=== PATIENT | male | born 1965 | race Caucasian/White ===

== ENCOUNTER → 2021-02-07 13:25 | Outpatient (BNVA) | payer BC, SELFPAY | PROVIDERS: PCP Internal Medicine; Visit Provider Hospitalist ==

== ENCOUNTER 2021-04-18 13:52 | Outpatient (REF) | payer BC, SELFPAY ==
--- NOTE | 2021-04-18 16:27 | PFT_ITS ---
INDICATION: Dyspnea. SPIROMETRY: The FEV1 to FVC of 44% with an FEV1 of 2.76 L, which is 68% predicted, an FVC of 6.33 L which is 120% predicted. No significant response to bronchodilators noted. Maximum voluntary ventilation 75% predicted. LUNG VOLUMES: Total lung capacity 112% predicted with residual volume 92% predicted. DIFFUSION CAPACITY: DLCO 34% predicted. COMPARISONS: None. INTERPRETATION: There is an obstructive ventilatory defect consistent with moderate COPD. No significant response to bronchodilators noted. Significant small airways disease noted. There is also mild decrease in the maximum voluntary ventilation secondary to likely deconditioning. Lung volumes with a trend of hyperinflation in addition to that the patient does have a severe diffusion impairment secondary to likely emphysematous changes and/or the parenchymal lung conditions and other pulmonary vascular conditions should also be considered. Clinical correlation warranted. MD STACIA Mead/MODGagandeep / [id number]
== END 2021-04-18 13:53 | disposition home or self-care (01) ==
LOC: HO.RESP 13:52
PROVIDERS: PCP Internal Medicine; Visit Provider Hospitalist
DX: R06.00 Dyspnea, unspecified (principal); J44.9 Chronic obstructive pulmonary disease, unspecified
CPT/HCPCS: 94060; 94727; 94729

== ENCOUNTER → 2021-04-25 08:58 | Outpatient (BNVA) | payer BC, SELFPAY | PROVIDERS: PCP Internal Medicine; Visit Provider Hospitalist ==

== ENCOUNTER → 2021-06-06 15:01 | Outpatient (BNVA) | payer BC, SELFPAY | PROVIDERS: PCP Internal Medicine; Visit Provider Hospitalist | DX: R91.1 Solitary pulmonary nodule (principal); J44.1 Chronic obstructive pulmonary disease with (acute) exacerbation; R06.00 Dyspnea, unspecified; U07.1 COVID-19; Z87.891 Personal history of nicotine dependence | CPT/HCPCS: 99212 ==

== ENCOUNTER → 2021-08-16 09:06 | Outpatient (BNVA) | payer BC, SELFPAY | PROVIDERS: PCP Internal Medicine; Visit Provider Hospitalist | DX: J44.9 Chronic obstructive pulmonary disease, unspecified (principal) ==

== ENCOUNTER → 2022-08-21 13:48 | Outpatient (BNVA) | payer BC, SELFPAY | PROVIDERS: PCP Internal Medicine; Visit Provider Hospitalist | DX: J44.9 Chronic obstructive pulmonary disease, unspecified (principal) ==

== ENCOUNTER 2023-01-22 14:18 | Outpatient (AMB) | payer BC, SELFPAY ==
[2023-01-22 14:27] VITALS: BP 122/76; PULSE 85; RESP 12; O2SAT 93
--- NOTE | 2023-01-22 14:27 | A.OFFVIS_ITS ---
Intake Vital Signs 01/22/23 14:27 Height 6 ft BP 122/76 Blood Pressure Location Lt brachial Position Sitting Respiration 12 Pulse 85 Pulse Source Pulse Oximeter Pulse Oximetry (%) 93 Oxygen Delivery Method Room Air Intake Visit Reasons: COPD Allergies oxycodone Allergy (Severe, Verified 01/22/23 14:29) Itching/Hives Medication List - Last Reconciled 01/22/23 by Shana Cortes LPN allopurinol 300 mg PO DAILY atorvastatin 10 mg PO DAILY budesonide 0.5 mg (2 mL) inhalation BID ipratropium-albuterol 0.5 mg-3 mg(2.5 mg base)/3 mL 3 mL inhalation BID ipratropium-albuterol 20-100 mcg/actuation 1 puff inhalation Q6H 30 days loratadine (Claritin) 10 mg PO DAILY metformin 500 mg PO DAILY multivitamin 1 tab PO DAILY nebulizers As directed varenicline 1 mg PO BID HPI HPI Comments History of Present Illness Details The patient is a 57-year-old gentleman with a significant past medical history of smoking. He quit 4 months ago. He continues to have dyspnea on exertion. Moderate severity. Does get better with rest. He is very busy at work. 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 His job is very active. He does not feel limited from a respiratory standpoint. He did undergo a CT scan of the chest which we personally reviewed. It appears that he has extensive emphysema primarily in the upper lung zones but does manifest also in the bases. He does have a small subcentimeter pulmonary nodule. This will need follow-up in a year's time. During the visit we did go for brief walking oximetry in he did desaturate briefly down to 88%. The patient is Molina score was down to 2/10. This was not significant shortness of breath for him. at this point will try to provide bronchodilation and will perform pulmonary function studies to assess his lung capacity. We did talk about pulmonary rehabilitation and he can do on his own time specially if he wants doing online. At this point he quit smoking altogether. But he is concerned because is going through a some anger episodes. This is since he stop smoking. He was placed on an SSRI. He may need to have a higher dose. 04/25/2021 the patient is here for a pulmo nary follow-up visit. He has now recovered from COVID-19. Feels like his breathing is worse. He is also having increasing productive cough with white thick sputum. He has been noticing increasing shortness of breath. Initially he was on Anoro but it was too expensive. I did give him a coupon for Trelegy inhaler with hopes that he could be more reasonable. But, his insurance did not cover it and could not use the coupon. Subsequently he came in for this appointment. We did review his pulmonary function studies demonstrating moderate COPD with severe diffusion imp airment. I do believe that this is also affected by his recent COVID infection. Patient does have some increased wheezing and also crepitations at the bases. Therefore will treating for a COPD exacerbation and lower respiratory infections at this time. We did briefly go for walking oximetry. His oxygen decrease down briefly again to about 88-89%. The patient is reluctant to use oxygen at this time. He continues to work full-time. Sometimes he works doubles and is always on his feet. I encouraged the patient to listen to his body and avoid extraneous activity specially he starts desaturating is only going to resulting worsening his logic stressed the body including the heart in the brain. 06/06/2021 the patient is here for a pulmonary follow-up visit. He still complaining that his breathing is now worse specially after recovering from COVID-19. Unfortunately the patient had extensive emphysema even prior to the COVID. Now with COVID his respiratory status has worsened significantly. He did respond initially to the prednisone taper but then once he has completed his symptoms again reoccurred. He also tried multiple inhalers with that are actually very expensive for him and yet he did not see any significant improvement with respiratory status. 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 Point that he does qualify for oxygen. However, the patient is reluctant to do so based on the fact that he is young and he wants to continue working and he cannot work on oxygen. Will try him again on prednisone. Also provided with a nebulizer to see if we can get him more effective delivery of the medication. the patient is frustrated with his current health situation. I do emphasized with him and his wanting to be able to continue with his work ethic. 08/16/2021 the patient is here for a pulmonary follow-up visit. Since we last spoke the patient has been feeling about the same. Although, he is taking it easier to minimize his symptoms. He continues using nebulizer twice a day with partial response. Continues to have significant shortness of breath moderate severity. Denies any wheezing or any productive phlegm. He continues to have a a pulse ox in the low 90s. The patient has been reluctant to use oxygen. We will optimize his respiratory therapy by adding budesonide to his DuoNeb. In the meantime will also start the patient on Combivent in order for him to be able to continue the medicine even when he is outside of the home. If the Combivent is helpful he can consider taking that on vacation when [facility]. Otherwise any to take his nebulizer. His respiratory exam is better I do believe that he is making improvement. Were also follow-up pulmonary nodules. His next CT scan is going to be in December 2021. Will follow-up with him after that CT scan of the chest. 02/20/2022 the patient is here for a pulmonary follow-up visit. The patient has been doing relatively well. He had quit smoking for about a year. Unfortunately after going on vacation he once again restarted smoking. He is motivated to quitting. He does have the patch although he has not restarted using it. I did recommend starting Chantix. The patient understands that he has to monitor very closely for any depression or irritability. I am hopeful that he can start with a starter pack and then if he tolerates that then he can continue taking the maintenance dose. At any point he becomes uncomfortable taking his stop it and call me. We did review his CT scan of the chest that had back in December 2021. It is reassuring that his pulmonary nodules stable. We talked that may before his next CAT scan next year he can be part of the lung cancer screening program and therefore have low-dose CT scans. He continues uses nebulized therapy. He is very excited that his oxygenation is better today at 96% from before in the low 90s. The patient is encouraged that he could potentially get better. Therefore he is going to start the Chantix a monitor closely for any adverse effects. I am hopeful that he can tolerated. He will follow-up in 6 months. 08/21/2022 the patient is here for a pulmo dericky follow-up visit. The patient overall is doing well. Unfortunately he has gone back to smoking. Sometimes he smokes 5 cigarettes and sometimes he can not smoke up to a pack. Depends on his anxiety level. He is still working. And still using the Chantix with partial response. We did talk about adding a nicotine supplementation to see this is effective along with his Chantix. In addition to this we talked about hypnosis which will consider. The patient also be a great candidate for the lung cancer screening program. His next CT will be for the fall of 2022. Patient is using his respiratory therapy. Otherwise patient is without any other complaints. 01/22/2023 the patient is here for pulmonary follow-up visit. The patient continues to go back to smoking. Smoking about a pack a day. he would like to quit smoking before he leaves to a room by which is in 2 months. The patient did well with Chantix although he continued to smoke some. Therefore this time he can consider using Chantix along with the nicotine supplement a chin which could be the Nicotrol inhaler or the nicotine patch. He had a bad reaction to high-dose nicotine patch in the past. Therefore be reasonable for him to use lower patch along with the Chantix. If he has any adverse effects he can always stop it. The patient continues on the nebulized therapy with good effect. [facility] Medical History (Updated 01/21/23 @ 11:07 by Fiath Hannah PA-C) COPD (chronic obstructive pulmonary disease) Dyspnea Pulmonary nodule Personal history of nicotine dependence History of COVID-19 Hyperlipidemia Gout Social History (Updated 02/07/21 @ 13:35 by Glenna Gongora Cesar) Patient Tobacco Use Status: Former Tobacco user Tobacco use type: Cigarette Years Smoked: 40 years Quit 10/2020 Review of Systems Const Denies night sweats ENT Denies change in voice, Denies lip swelling, Denies mouth pain, Reports nasal congestion, Reports nasal discharge and Denies tongue swelling Card Denies chest pain and Reports dyspnea on exertion Resp Denies chest congestion, Reports cough, Reports dyspnea on exertion and Reports wheezing GI Denies abdominal pain Musc Denies no additional complaints Neuro Denies Neuro-related abnormal movements Psych Denies no additional complaints Dragan/Lymph Denies easy bleeding and Denies lymphadenopathy Aller/Immun Denies lip swelling, Denies tongue swelling and Reports wheezing Physical Exam Vital Signs: Last Vital Signs Pulse 85 01/22/23 14:27 Resp 12 01/22/23 14:27 BP 122/76 01/22/23 14:27 Pulse Ox 93 01/22/23 14:27 Oxygen Delivery Method Room Air 01/22/23 14:27 Const General: alert Neck Neck: Yes normal visual inspection, Yes full ROM and Yes no lymphadenopathy Chest Chest palpation & inspection: normal inspection of the chest Resp Auscultation: no rhonchi, wheezes and diminished lung sounds Cardio Rate: regular rate Rhythm: regular rhythm Heart sounds: S1 normal heart sound present and S2 normal heart sound present GI Palpation (GI): Soft to palpation and nontender Auscultation: normal bowel sounds Skin General skin exam: rashes and/or lesions noted Assessment & Plan Assessment & Plan (1) Pulmonary nodule: Comment: Stable 4 mm pulmonary nodule based on last CT scan December 2021 Code(s): R91.1 - Solitary pulmonary nodule (2) COPD (chronic obstructive pulmonary disease): Code(s): J44.9 - Chronic obstructive pulmonary disease, unspecified Qualifiers: COPD type: COPD with acute exacerbation Qualified Code(s): J44.1 - 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 with (acute) exacerbation (3) Dyspnea: Code(s): R06.00 - Dyspnea, unspecified Qualifiers: Dyspnea type: dyspnea on exertion Qualified Code(s): R06.00 - Dyspnea, unspecified (4) Tobacco dependence due to cigarettes: Code(s): F17.210 - Nicotine dependence, cigarettes, uncomplicated Plan Continue nebulized therapy with DuoNeb twice a day budesonide via nebulizer start CPT with acapella valve Combivent LDCT continue Chantix, monitoring for depression start nicotene patch along with the chantix consider hypnosis F/U 6 months Medications: New nicotine 1 patch transdermal DAILY 28 days 28 ea 3RF Refilled varenicline 1 mg PO BID 159 tabs 1RF Coding Level of Care Code Est Pt Level 4 (65630) Diagnoses Pulmonary nodule R91.1 Chronic obstructive pulmonary disease with acute exacerbation J44.1 COPD type: COPD with acute exacerbation Dyspnea on exertion R06.00 Dyspnea type: dyspnea on exertion Tobacco dependence due to cigarettes F17.210 Time Spent (min) 16
== END 2023-01-22 14:54 | disposition home or self-care (01) ==
PROVIDERS: PCP Internal Medicine; Visit Provider Hospitalist
DX: R91.1 Solitary pulmonary nodule (principal); J44.1 Chronic obstructive pulmonary disease with (acute) exacerbation; R06.00 Dyspnea, unspecified; F17.210 Nicotine dependence, cigarettes, uncomplicated
CPT/HCPCS: 99214

== ENCOUNTER → 2023-01-22 14:18 | Outpatient (BNVA) | payer BC, SELFPAY | PROVIDERS: PCP Internal Medicine; Visit Provider Hospitalist | DX: J44.9 Chronic obstructive pulmonary disease, unspecified (principal); F17.210 Nicotine dependence, cigarettes, uncomplicated ==

== ENCOUNTER 2023-01-25 09:55 | Outpatient (AMB) | payer BC, SELFPAY ==
--- NOTE | 2023-01-25 09:56 | MHC.OFFVIS ---
Intake Intake Visit Reasons: LDCT SD Allergies oxycodone Allergy (Severe, Verified 01/22/23 14:29) Itching/Hives HPI LDCT SD HPI Details Initial visit for this 57 year old smoker with a 28 PYH. Patient has been smoking since age 19 for 38 years at 1/2-1ppd. . Notes social second hand smoke exposure. Denies exposure to chemicals or substances like asbestos. . Denies known family history of lung cancer. Denies personal history of cancer. Denies chest CT in last year, LAST 12/2021, report below. . Has traveled outside the to [place], [facility] and [facility]. Denies recent respiratory illness or recent hospitalization for respiratory issues. Reports testing positive for COVID. Admits to being up to date with COVID Vaccinations. . Denies fever, chills, new/worsening cough, hemoptysis, hoarseness or dysphagia. Denies significant chest pain, significant dyspnea or unintentional weight loss. Patient Lung Cancer Screening Questionnaire reviewed with patient by provider. . Shared Decision Making Completed. Patient meets criteria. Discussed in detail with patient, the risk vs benefit of LDCT screening. Patient consents to proceed with scan. Discussed smoking cessation. [facility] Medical History (Updated 01/21/23 @ 11:07 by Faith Hannah PA-C) COPD (chronic obstructive pulmonary disease) Dyspnea Pulmonary nodule Personal history of nicotine dependence History of COVID-19 Hyperlipidemia Gout Social History (Updated 02/07/21 @ 13:35 by DEMETRIS Kevin) Patient Tobacco Use Status: Former Tobacco user Tobacco use type: Cigarette Years Smoked: 40 years Quit 10/2020 Results Reviewed Results Reviewed: Assessment & Plan Assessment & Plan (1) Personal history of nicotine dependence: Comment: (former smoker quit 10/2020) Prior chest CTs done. 12/28/2020 was lung-RADS 2, 12/19/21 noted stable 4mm RUL nodule. Code(s): Z87.891 - Personal history of nicotine dependence Plan - SDM visit completed via telehealth. - Patient meets criteria for LDCT for lung cancer screening purposes and is asymptomatic. - Offered smoking cessation. - Will arrange for a LDCT scan of the chest for screening purposes at [facility]. - Discussed follow up plan. Will send a letter discussing results and if needed set up phone call and office visit based on CT findings. - Risks, benefits, and alternatives were discussed in detail and patient agrees to proceed. - Risks discussed include but are not limited to: radiation exposure and possibility of additional intervention for benign disease. - Benefits are obviously detection of lung cancer at an early stage. - Discussed importance of screening program and compliance with yearly LDCT scan as scheduled. - Patient informed they will be contacted at later date to schedule upcoming LDCT scan. - All questions answered. - A copy of office note and LDCT will be sent to patient's PCP. Incidental findings on LDCT are PCP's responsibility. Telehealth Telehealth Location of provider rendering services: practice address Location of patient: address on file Patient Identification confirmed using: Name, : Yes Telehealth method: voice only Patient verbally consented to treatment: Yes Patient verbally consented to billing insurance company: Yes Patient informed of any privacy concerns related to visit: Yes Coding Level of Care Code Lung Cancer Screening [id number] Diagnoses Personal history of nicotine dependence Z87.891
== END 2023-01-25 10:49 | disposition home or self-care (01) ==
LOC: HO.HPS 09:55
PROVIDERS: PCP Internal Medicine; Visit Provider Nurse Practitioner Family
DX: Z87.891 Personal history of nicotine dependence (principal)
CPT/HCPCS: G0296

== ENCOUNTER 2023-01-25 13:57 | Outpatient (REF) | payer BC, SELFPAY ==
--- NOTE | ~2023-01-25 | CT_ITS ---
EXAMINATION: CT LOW-DOSE SCREENING CHEST WITHOUT CONTRAST CLINICAL INFORMATION: CT scan from screening. Smoking 1 pack per day/43 pack per year/correlate to one year ago COMPARISON: 12/19/2021, 12/28/2020 TECHNIQUE: Multidetector volumetric noncontrast CT imaging of the chest was obtained using low-dose screening CT technique. Axial thin section 0.625 mm reformations in soft tissue and lung windows were obtained. Sagittal and coronal reformations were obtained. Axial MIP images were also created and reviewed. RECONSTRUCTED WIDTH: 1.25 mm x[address] examination was performed using dose optimization techniques as appropriate, variously including the following: *Automated exposure control *Adjustment of mA and/or kV according to patient size (this includes techniques or standardized protocols for targeted exams where dose is matched to indication/reason for exam; i.e. extremities or head) *Use of iterative reconstruction technique TOTAL EXAM DLP: 51 mGy-cm. CTDIvol: 1.14 mGy. FINDINGS: PULMONARY NODULES: No lung nodules identified. 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 Central airways are patent. MEDIASTINUM: No mediastinal adenopathy by size criteria. No obvious hilar adenopathy on this noncontrast study. CORONARY ARTERY CALCIFICATION: Coronary artery calcifications present THYROID GLAND: Unremarkable to the extent seen. CARDIOVASCULAR STRUCTURES: Aorta and heart size normal. No pericardial effusion. CHEST WALL/AXILLA: Unremarkable. No evidence of axillary adenopathy by size criteria. UPPER ABDOMEN: Included portions of the solid organs in the upper abdomen appear unremarkable on noncontrast imaging. OSSEOUS STRUCTURES: No suspicious finding. CT/CT lung screening IMPRESSION: No lung nodules identified severe changes of COPD with emphysematous changes and bullous disease. ASSESSMENT: 1. Lung-RADS Category 2 2. Lung-RADS Category S: Benign RECOMMENDATION: Continued routine annual screening based on patient's risk factors with low dose CT scan
== END 2023-01-25 13:58 | disposition home or self-care (01) ==
LOC: HO.CT 13:57
PROVIDERS: Visit Provider Physician Assistant Medical
DX: Z12.2 Encounter for screening for malignant neoplasm of respiratory organs (principal); Z87.891 Personal history of nicotine dependence
CPT/HCPCS: 71271; G0296

== ENCOUNTER 2023-06-25 14:23 | Outpatient (AMB) | payer BC, SELFPAY ==
--- NOTE | 2023-06-25 14:26 | A.OFFVIS_ITS ---
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 He quit 4 months ago. He continues to have dyspnea on exertion. Moderate severity. Does get better with rest. He is very busy at work. 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 His job is very active. He does not feel limited from a respiratory standpoint. He did undergo a CT scan of the chest which we personally reviewed. It appears that he has extensive emphysema primarily in the upper lung zones but does manifest also in the bases. He does have a small subcentimeter pulmonary nodule. This will need follow-up in a year's time. During the visit we did go for brief walking oximetry in he did desaturate briefly down to 88%. The patient is Molina score was down to 2/10. This was not significant shortness of breath for him. at this point will try to provide bronchodilation and will perform pulmonary function studies to assess his lung capacity. We did talk about pulmonary rehabilitation and he can do on his own time specially if he wants doing online. At this point he quit smoking altogether. But he is concerned because is going through a some anger episodes. This is since he stop smoking. He was placed on an SSRI. He may need to have a higher dose. 04/25/2021 the patient is here for a pulmo james follow-up visit. He has now recovered from COVID-19. Feels like his breathing is worse. He is also having increasing productive cough with white thick sputum. He has been noticing increasing shortness of breath. Initially he was on Anoro but it was too expensive. I did give him a coupon for Trelegy inhaler with hopes that he could be more reasonable. But, his insurance did not cover it and could not use the coupon. Subsequently he came in for this appointment. We did review his pulmonary function studies demonstrating moderate COPD with severe diffusion impairment. I do believe that this is also affected by his recent COVID infection. Patient does have some increased wheezing and also crepitations at the bases. Therefore will treating for a COPD exacerbation and lower respiratory infections at this time. We did briefly go for walking oximetry. His oxygen decrease down briefly again to about 88-89%. The patient is reluctant to use oxygen at this time. He continues to work full-time. Sometimes he works doubles and is always on his feet. I encouraged the patient to listen to his body and avoid extraneous activity specially he starts de saturating is only going to resulting worsening his logic stressed the body including the heart in the brain. 06/06/2021 the patient is here for a pulmonary follow-up visit. He still complaining that his breathing is now worse specially after recovering from COVID-19. Unfortunately the patient had extensive emphysema even prior to the COVID. Now with COVID his respiratory status has worsened significantly. He did respond initially to the prednisone taper but then once he has completed his symptoms again reoccurred. He also tried multiple inhalers with that are actually very expensive for him and yet he did not see any significant improvement with respiratory status. 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 Point that he does qualify for oxygen. However, the patient is reluctant to do so based on the fact that he is young and he wants to continue working and he cannot work on oxygen. Will try him again on prednisone. Also provided with a nebulizer to see if we can get him more effective delivery of the medication. the patient is frustrated with his current health situation. I do emphasized with him and his wanting to be able to continue with his work ethic. 08/16/2021 the patient is here for a pulmonary follow-up visit. Since we last spoke the patient has been feeling about the same. Although, he is taking it easier to minimize his symptoms. He continues using nebulizer twice a day with partial response. Continues to have significant shortness of breath moderate severity. Denies any wheezing or any productive phlegm. He continues to have a a pulse ox in the low 90s. The patient has been reluctant to use oxygen. We will optimize his respiratory therapy by adding budesonide to his DuoNeb. In the meantime will also start the patient on Combivent in order for him to be able to continue the medicine even when he is outside of the home. If the Combivent is helpful he can consider taking that on vacation when he [facility]. Otherwise any to take his nebulizer. His respiratory exam is better I do believe that he is making improvement. Were also follow-up pulmonary nodules. His next CT scan is going to be in December 2021. Will follow-up with him after that CT scan of the chest. 02/20/2022 the patient is here for a pulmonary follow-up visit. The patient has been doing relatively well. He had quit smoking for about a year. Unfortunately after going on vacation he once again restarted smoking. He is motivated to quitting. He does have the patch although he has not restarted using it. I did recommend starting Chantix. The patient understands that he has to monitor very closely for any depression or irritability. I am hopeful that he can start with a starter pack and then if he tolerates that then he can continue taking the maintenance dose. At any point he becomes uncomfortable taking his stop it and call me. We did review his CT scan of the chest that had back in December 2021. It is reassuring that his pulmonary nodules stable. We talked that may before his next CAT scan next year he can be part of the lung cancer screening program and therefore have low-dose CT scans. He continues uses nebulized therapy. He is very excited that his oxygenation is better today at 96% from before in the low 90s. The patient is encouraged that he could potentially get better. Therefore he is going to start the Chantix a monitor closely for any adverse effects. I am hopeful that he can tolerated. He will follow-up in 6 months. 08/21/2022 the patient is here for a pulmo nary follow-up visit. The patient overall is doing well. Unfortunately he has gone back to smoking. Sometimes he smokes 5 cigarettes and sometimes he can not smoke up to a pack. Depends on his anxiety level. He is still working. And still using the Chantix with partial response. We did talk about adding a nicotine supplementation to see this is effective along with his Chantix. In addition to this we talked about hypnosis which will consider. The patient also be a great candidate for the lung cancer screening program. His next CT will be for the fall of 2022. Patient is using his respiratory therapy. Otherwise patient is without any other complaints. 01/22/2023 the patient is here for pulmonary follow-up visit. The patient continues to go back to smoking. Smoking about a pack a day. he would like to quit smoking before he leaves to a room by which is in 2 months. The patient did well with Chantix although he continued to smoke some. Therefore this time he can consider using Chantix along with the nicotine supplement a chin which could be the Nicotrol inhaler or the nicotine patch. He had a bad reaction to high-dose nicotine patch in the past. Therefore be reasonable for him to use lower patch along with the Chantix. If he has any adverse effects he can always stop it. The patient continues on the nebulized therapy with good effect. 06/25/2023 the patient is here for a pulmonary follow-up visit. The patient is doing about the same. Still having significant dyspnea on exertion. Moderate severity. 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 Unfortunately he does have severe emphysema. We did talk about the degree of severity I am concerned that his quickly getting worse. The patient continues to smoke cigarettes. He did try multiple smoking cessation therapies and did not tolerated. The last 1 was Chantix resulting in significant anxiety and insomnia. He is doing better after he stopped it. The patient is participating in the lung cancer screening program. His last CT scan again demonstrating extensive emphysema. Will plan to repeat his PFTs in 6 months. In the meantime the patient is complaining of chronic bronchitis and will start him on azithromycin 3 times a week. He is already on nebulized therapy which we responds well. He also has been on Combivent although he does not use it as regularly as he should. As far as further therapies in view of significant emphysema primarily in the upper lung zones we did talk about lung volume reduction interventions with the 1 way valves. Therefore, will have him undergo his PFTs and then we will look at all those options. [facility] Medical History (Updated 01/21/23 @ 11:07 by Faith Hannah PA-C) COPD (chronic obstructive pulmonary disease) Dyspnea Pulmonary nodule Personal history of nicotine dependence History of COVID-19 Hyperlipidemia Gout Social History (Updated 02/07/21 @ 13:35 by DEMETRIS Kevin) Patient Tobacco Use Status: Former Tobacco user Tobacco use type: Cigarette Years Smoked: 40 years Quit 10/2020 Review of Systems Const Denies night sweats ENT Denies change in voice, Denies lip swelling, Denies mouth pain, Reports nasal congestion, Reports nasal discharge and Denies tongue swelling Card Denies chest pain and Reports dyspnea on exertion Resp Denies chest congestion, Reports cough, Reports dyspnea on exertion and Reports wheezing GI Denies abdominal pain Musc Denies no additional complaints Neuro Denies Neuro-related abnormal movements Psych Denies no additional complaints Dragan/Lymph Denies easy bleeding and Denies lymphadenopathy Aller/Immun Denies lip swelling, Denies tongue swelling and Reports wheezing Physical Exam Vital Signs: Last Vital Signs Pulse 90 06/25/23 14:27 Pulse Ox 89 L 06/25/23 14:27 Oxygen Delivery Method Room Air 06/25/23 14:27 BMI result Body Mass Index 25.1 Const General: alert Neck Neck: Yes normal visual inspection, Yes full ROM and Yes no lymphadenopathy Chest Chest palpation & inspection: normal inspection of the chest Resp Auscultation: no rhonchi, wheezes and diminished lung sounds Cardio Rate: regular rate Rhythm: regular rhythm Heart sounds: S1 normal heart sound present and S2 normal heart sound present GI Palpation (GI): Soft to palpation and nontender Auscultation: normal bowel sounds Skin General skin exam: rashes and/or lesions noted Assessment & Plan Assessment & Plan (1) Pulmonary nodule: Comment: Stable 4 mm pulmonary nodule based on last CT scan December 2021 Code(s): R91.1 - Solitary pulmonary nodule (2) COPD (chronic obstructive pulmonary disease): Code(s): J44.9 - Chronic obstructive pulmonary disease, unspecified Qualifiers: COPD type: COPD with acute exacerbation Qualified Code(s): J44.1 - Chr onic obstructive pulmonary disease with (acute) exacerbation (3) Dyspnea: Code(s): R06.00 - Dyspnea, unspecified Qualifiers: Dyspnea type: dyspnea on exertion Qualified Code(s): R06.00 - Dyspnea, unspecified (4) Tobacco dependence due to cigarettes: Code(s): F17.210 - Nicotine dependence, cigarettes, uncomplicated Plan Continue nebulized therapy with DuoNeb twice a day budesonide via nebulizer CPT with acapella valve start Azithromycin MWF Combivent LDCT consider hypnosis PFTs and VBG in 6 months F/U 6 months Orders: Orders Alpha 1 Anti-trypsin Today J44.1 - Chronic obstructive pulmonary disease with (acute) exacerbation Complete Blood Count Auto Diff Today J44.1 - Chronic obstructive pulmonary disease with (acute) exacerbation Basic Metabolic Panel Today J44.1 - Chronic obstructive pulmonary disease with (acute) exacerbation PFT pulmonary function test 5 Months J44.1 - Chronic obstructive pulmonary disease with (acute) exacerbation Venous Blood Gas Today J44.1 - Chronic obstructive pulmonary disease with (acute) exacerbation Medications: New azithromycin Take 1 tablet on Saturday/Saturday/Saturday 250 mg PO 3XW 28 days 12 tabs 6RF K21.9 - Gastro-esophageal reflux disease without esophagitis Coding Level of Care Code Est Pt Level 4 (59242) Diagnoses Pulmonary nodule R91.1 Chronic obstructive pulmonary disease with acute exacerbation J44.1 COPD type: COPD with acute exacerbation Dyspnea on exertion R06.00 Dyspnea type: dyspnea on exertion Tobacco dependence due to cigarettes F17.210 Time Spent (min) 17
[2023-06-25 14:27] VITALS: PULSE 90; O2SAT 89; BMI 25.1
== END 2023-06-25 14:53 | disposition home or self-care (01) ==
PROVIDERS: PCP Internal Medicine; Visit Provider Hospitalist
DX: R91.1 Solitary pulmonary nodule (principal); J44.1 Chronic obstructive pulmonary disease with (acute) exacerbation; R06.00 Dyspnea, unspecified; F17.210 Nicotine dependence, cigarettes, uncomplicated
CPT/HCPCS: 99214

== ENCOUNTER → 2023-06-25 14:23 | Outpatient (BNVA) | payer BC, SELFPAY | PROVIDERS: PCP Internal Medicine; Visit Provider Hospitalist | DX: J44.9 Chronic obstructive pulmonary disease, unspecified (principal); F17.210 Nicotine dependence, cigarettes, uncomplicated ==

== ENCOUNTER 2023-12-12 12:57 | Outpatient (REF) | payer BC, SELFPAY ==
--- NOTE | 2023-12-12 13:00 | PFT_ITS ---
Flows: FEV1: 63 % of predicted at 2.46 L FVC: 120 % of predicted at 6.04 L FEV1/FVC: 41 % Bronchodilator response: Present Volumes: Total lung capacity: 105 % of predicted at 8.10 L Residual volume: 88 % of predicted at 2.01 L Slow vital capacity: 111 % of predicted at 6.09 L Expiratory reserve volume: 187 % of predicted at 2.81 L Diffusion capacity: Moderately decreased Impression: Moderate obstructive ventilatory defect with positive bronchodilator response. Decreased diffusion capacity suggests emphysema. MTDD
== END 2023-12-12 12:58 | disposition home or self-care (01) ==
LOC: HO.RESP 12:57
PROVIDERS: PCP Internal Medicine; Visit Provider Hospitalist
DX: J44.1 Chronic obstructive pulmonary disease with (acute) exacerbation (principal)
CPT/HCPCS: 94010; 94640; 94727; 94729

== ENCOUNTER → 2023-12-12 13:00 | Outpatient (BNV) | payer BC, SELFPAY | PROVIDERS: PCP Internal Medicine; Visit Provider Internal Medicine Pulmonary Disease | DX: J44.9 Chronic obstructive pulmonary disease, unspecified (principal) | CPT/HCPCS: 94060; 94727; 94729 ==

== ENCOUNTER 2023-12-31 14:07 | Outpatient (AMB) | payer BC, SELFPAY ==
[2023-12-31 14:17] VITALS: BP 120/68; PULSE 90; O2SAT 95; BMI 25.7
--- NOTE | 2023-12-31 14:17 | MHC.OFFVIS ---
Vital Signs 12/31/23 14:17 Height 6 ft Weight 189 lb 9.561 oz BMI 25.7 BP 120/68 Blood Pressure Location Lt brachial Position Sitting Pulse 90 Pulse Source Pulse Oximeter Pulse Oximetry (%) 95 Oxygen Delivery Method Room Air Intake Visit Reasons: COPD Cone Trucker Required: No Allergies oxycodone Allergy (Severe, Verified 12/31/23 14:20) Itching/Hives HPI Comments Details: The patient is a 58-year-old gentleman with a significant past medical history of smoking. He quit 4 months ago. He continues to have dyspnea on exertion. Moderate severity. Does get better with rest. He is very busy at work. She usually works a full shiftman and he is able to keep up with his responsibilities. His job is very active. He does not feel limited from a respiratory standpoint. He did undergo a CT scan of the chest which we personally reviewed. It appears that he has extensive emphysema primarily in the upper lung zones but does manifest also in the bases. He does have a small subcentimeter pulmonary nodule. This will need follow-up in a year's time. During the visit we did go for brief walking oximetry in he did desaturate briefly down to 88%. The patient is Molina score was down to 2/10. This was not significant shortness of breath for him. at this point will try to provide bronchodilation and will perform pulmonary function studies to assess his lung capacity. We did talk about pulmonary rehabilitation and he can do on his own time specially if he wants doing online. At this point he quit smoking altogether. But he is concerned because is going through a some anger episodes. This is since he stop smoking. He was placed on an SSRI. He may need to have a higher dose. 04/25/2021 the patient is here for a pulmonary follow-up visit. He has now recovered from COVID-19. Feels like his breathing is worse. He is also having increasing productive cough with white thick sputum. He has been noticing increasing shortness of breath. Initially he was on Anoro but it was too expensive. I did give him a coupon for Trelegy inhaler with hopes that he could be more reasonable. But, his insurance did not cover it and could not use the coupon. Subsequently he came in for this appointment. We did review his pulmonary function studies demonstrating moderate COPD with severe diffusion impairment. I do believe that this is also affected by his recent COVID infection. Patient does have some increased wheezing and also crepitations at the bases. Therefore will treating for a COPD exacerbation and lower respiratory infections at this time. We did briefly go for walking oximetry. His oxygen decrease down briefly again to about 88-89%. The patient is reluctant to use oxygen at this time. He continues to work full-time. Sometimes he works doubles and is always on his feet. I encouraged the patient to listen to his body and avoid extraneous activity specially he starts desaturating is only going to resulting worsening his logic stressed the body including the heart in the brain. 06/06/2021 the patient is here for a pulmonary follow-up visit. He still complaining that his breathing is now worse specially after recovering from COVID-19. Unfortunately the patient had extensive emphysema even prior to the COVID. Now with COVID his respiratory status has worsened significantly. He did respond initially to the prednisone taper but then once he has completed his symptoms again reoccurred. He also tried multiple inhalers with that are actually very expensive for him and yet he did not see any significant improvement with respiratory status. 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 Point that he does qualify for oxygen. However, the patient is reluctant to do so based on the fact that he is young and he wants to continue working and he cannot work on oxygen. Will try him again on prednisone. Also provided with a nebulizer to see if we can get him more effective delivery of the medication. the patient is frustrated with his current health situation. I do emphasized with him and his wanting to be able to continue with his work ethic. 08/16/2021 the patient is here for a pulmonary follow-up visit. Since we last spoke the patient has been feeling about the same. Although, he is taking it easier to minimize his symptoms. He continues using nebulizer twice a day with partial response. Continues to have significant shortness of breath moderate severity. Denies any wheezing or any productive phlegm. He continues to have a a pulse ox in the low 90s. The patient has been reluctant to use oxygen. We will optimize his respiratory therapy by adding budesonide to his DuoNeb. In the meantime will also start the patient on Combivent in order for him to be able to continue the medicine even when he is outside of the home. If the Combivent is helpful he can consider taking that on vacation when he goes to [facility]. Otherwise any to take his nebulizer. His respiratory exam is better I do believe that he is making improvement. Were also follow-up pulmonary nodules. His next CT scan is going to be in December 2021. Will follow-up with him after that CT scan of the chest. 02/20/2022 the patient is here for a pulmonary follow-up visit. The patient has been doing relatively well. He had quit smoking for about a year. Unfortunately after going on vacation he once again restarted smoking. He is motivated to quitting. He does have the patch although he has not restarted using it. I did recommend starting Chantix. The patient understands that he has to monitor very closely for any depression or irritability. I am hopeful that he can start with a starter pack and then if he tolerates that then he can continue taking the maintenance dose. At any point he becomes uncomfortable taking his stop it and call me. We did review his CT scan of the chest that had back in December 2021. It is reassuring that his pulmonary nodules stable. We talked that may before his next CAT scan next year he can be part of the lung cancer screening program and therefore have low-dose CT scans. He continues uses nebulized therapy. He is very excited that his oxygenation is better today at 96% from before in the low 90s. The patient is encouraged that he could potentially get better. Therefore he is going to start the Chantix a monitor closely for any adverse effects. I am hopeful that he can tolerated. He will follow-up in 6 months. 08/21/2022 the patient is here for a pulmonary follow-up visit. The patient overall is doing well. Unfortunately he has gone back to smoking. Sometimes he smokes 5 cigarettes and sometimes he can not smoke up to a pack. Depends on his anxiety level. He is still working. And still using the Chantix with partial response. We did talk about adding a nicotine supplementation to see this is effective along with his Chantix. In addition to this we talked about hypnosis which will consider. The patient also be a great candidate for the lung cancer screening program. His next CT will be for the fall. Patient is using his respiratory therapy. Otherwise patient is without any other complaints. 01/22/2023 the patient is here for pulmonary follow-up visit. The patient continues to go back to smoking. Smoking about a pack a day. he would like to quit smoking before he leaves to a room by which is in 2 months. The patient did well with Chantix although he continued to smoke some. Therefore this time he can consider using Chantix along with the nicotine supplement a chin which could be the Nicotrol inhaler or the nicotine patch. He had a bad reaction to high-dose nicotine patch in the past. Therefore be reasonable for him to use lower patch along with the Chantix. If he has any adverse effects he can always stop it. The patient continues on the nebulized therapy with good effect. 06/25/2023 the patient is here for a pulmonary follow-up visit. The patient is doing about the same. Still having significant dyspnea on exertion. Moderate severity. 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 Unfortunately he does have severe emphysema. We did talk about the degree of severity I am concerned that his quickly getting worse. The patient continues to smoke cigarettes. He did try multiple smoking cessation therapies and did not tolerated. The last 1 was Chantix resulting in significant anxiety and insomnia. He is doing better after he stopped it. The patient is participating in the lung cancer screening program. His last CT scan again demonstrating extensive emphysema. Will plan to repeat his PFTs in 6 months. In the meantime the patient is complaining of chronic bronchitis and will start him on azithromycin 3 times a week. He is already on nebulized therapy which we responds well. He also has been on Combivent although he does not use it as regularly as he should. As far as further therapies in view of significant emphysema primarily in the upper lung zones we did talk about lung volume reduction interventions with the 1 way valves. Therefore, will have him undergo his PFTs and then we will look at all those options. 12/31/2023 the patient is here for a pulmonary follow-up visit. Overall he is doing okay. He was exposed to a recent sick contact but seems to be doing better. He did have some chest congestion. The patient also had pulmonary function studies. Appears that he has a moderate obstruction with significant response to bronchodilators. He is working on smoking cessation. He is going to look into hypnosis. If not we can also consider other alternatives. The patient is also plan to have a lung cancer screening CT scan sometime in January. He will continue with his nebulizer treatments as prescribed. He is tolerating them well. He did get his flu and COVID vaccine. He will get the Prevnar 20 today. We did go for a brief walking oximetry. His oxygen is better 92% although the heart rate is indeed elevated. [facility] Medical History (Updated 01/21/23 @ 11:07 by Faith Hannah PA-C) COPD (chronic obstructive pulmonary disease) Dyspnea Pulmonary nodule Personal history of nicotine dependence History of COVID-19 Hyperlipidemia Gout Social History (Updated 02/07/21 @ 13:35 by DEMETRIS Kevin) Patient Tobacco Use Status: Former Tobacco user Tobacco use type: Cigarette Years Smoked: 40 years Quit 10/2020 Review of Systems Const Denies night sweats ENT Denies change in voice, Denies lip swelling, Denies mouth pain, Reports nasal congestion, Reports nasal discharge and Denies tongue swelling Card Denies chest pain and Reports dyspnea on exertion Resp Denies chest congestion, Reports cough, Reports dyspnea on exertion and Reports wheezing GI Denies abdominal pain Musc Denies no additional complaints Neuro Denies Neuro-related abnormal movements Psych Denies no additional complaints Dragan/Lymph Denies easy bleeding and Denies lymphadenopathy Aller/Immun Denies lip swelling, Denies tongue swelling and Reports wheezing Physical Exam Vital Signs: Last Vital Signs Pulse 90 12/31/23 14:17 BP 120/68 12/31/23 14:17 Pulse Ox 95 12/31/23 14:17 Oxygen Delivery Method Room Air 12/31/23 14:17 BMI result Body Mass Index 25.7 Const General: alert Neck Neck: Yes normal visual inspection, Yes full ROM and Yes no lymphadenopathy Chest Chest palpation & inspection: normal inspection of the chest Resp Effort & Inspection: normal respiratory effort Auscultation: no rhonchi, wheezes and diminished lung sounds Cardio Rate: regular rate Rhythm: regular rhythm Heart sounds: S1 normal heart sound present and S2 normal heart sound present GI Palpation (GI): Soft to palpation and nontender Auscultation: normal bowel sounds Skin General skin exam: rashes and/or lesions noted Immunizations pneumoc 20-karen conj-dip cr(PF) 0.5 mL IM syringe Performing Provider: Nito Sierra MD Performing Location: [facility] [place] [facility] Administered by: Stephanie Carranza LPN on 12/31/23 14:51 Dose Route Admin Location Dispensed Lot Number Expiration Date NDC Centrifugal Machine Tender 0.5 mL IM Left Deltoid 0.5 mL [id number] 12/15/24 5485-8223-50 [employer] VIS Given Date VIS Provided VIS Publication Date 12/31/23 Single Vaccine 22 Eligibility Eligibility Date Funding Source Not [facility] Eligible 12/31/23 Private Assessment & Plan Assessment & Plan (1) Pulmonary nodule: Comment: Stable 4 mm pulmonary nodule based on last CT scan December 2021 Code(s): R91.1 - Solitary pulmonary nodule Category: Medical (2) COPD (chronic obstructive pulmonary disease): Code(s): J44.9 - Chronic obstructive pulmonary disease, unspecified Category: Medical Qualifiers: COPD type: COPD with acute exacerbation Qualified Code(s): J44.1 - Chronic obstructive pulmonary disease with (acute) exacerbation (3) Dyspnea: Code(s): R06.00 - Dyspnea, unspecified Category: Medical Qualifiers: Dyspnea type: dyspnea on exertion Qualified Code(s): R06.00 - Dyspnea, unspecified Plan Continue nebulized therapy with DuoNeb twice a day budesonide via nebulizer CPT with acapella valve start doxycycline start prednisone if no better Combivent LDCT consider hypnosis prevnar 20 F/U 6 months Orders: Orders Pneumococcal 20 Immunization Today Z23 - Encounter for immunization Medications: New doxycycline hyclate 100 mg PO BID 20 caps 0RF 10 days prednisone PO daily; Take 2 tabs daily x 5 days, then 1 tablet daily x 5 days 15 tabs 0RF 10 days Coding Level of Care Code Est Pt Level 4 (39072) Diagnoses Pulmonary nodule R91.1 Chronic obstructive pulmonary disease with acute exacerbation J44.1 COPD type: COPD with acute exacerbation Dyspnea on exertion R06.00 Dyspnea type: dyspnea on exertion Time Spent (min) 17
== END 2023-12-31 14:46 | disposition home or self-care (01) ==
PROVIDERS: PCP Internal Medicine; Visit Provider Hospitalist
DX: R91.1 Solitary pulmonary nodule (principal); J44.1 Chronic obstructive pulmonary disease with (acute) exacerbation; R06.00 Dyspnea, unspecified; Z23 Encounter for immunization
CPT/HCPCS: 99214

== ENCOUNTER → 2023-12-31 14:07 | Outpatient (BNVA) | payer BC, SELFPAY | PROVIDERS: PCP Internal Medicine; Visit Provider Hospitalist | DX: J44.1 Chronic obstructive pulmonary disease with (acute) exacerbation (principal); R91.1 Solitary pulmonary nodule; R06.00 Dyspnea, unspecified; Z23 Encounter for immunization | CPT/HCPCS: 90471; 90677 ==

== ENCOUNTER 2024-01-28 11:15 | Outpatient (REF) | payer BC, SELFPAY | END 2024-01-28 11:16 | disposition home or self-care (01) | LOC: HO.CT 11:15 | PROVIDERS: PCP Internal Medicine; Visit Provider Physician Assistant Medical | DX: Z12.2 Encounter for screening for malignant neoplasm of respiratory organs (principal); Z87.891 Personal history of nicotine dependence | CPT/HCPCS: 71271 ==

== ENCOUNTER 2024-06-16 13:51 | Outpatient (AMB) | payer BC, SELFPAY ==
[2024-06-16 13:54] VITALS: BP 118/70; PULSE 105; O2SAT 91; BMI 25.4
--- NOTE | 2024-06-16 13:54 | MHC.OFFVIS ---
Vital Signs 06/16/24 13:54 Height 6 ft Weight 187 lb 6.287 oz BMI 25.4 BP 118/70 Blood Pressure Location Rt brachial Position Sitting Pulse 105 H Pulse Source Pulse Oximeter Pulse Oximetry (%) 91 L Oxygen Delivery Method Room Air Intake Visit Reasons: COPD Allergies oxycodone Allergy (Severe, Verified 06/16/24 13:57) Itching/Hives HPI Comments Details: The patient is a 58-year-old gentleman with a significant past medical history of smoking. He quit 4 months ago. He continues to have dyspnea on exertion. Moderate severity. Does get better with rest. He is very busy at work. 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 His job is very active. He does not feel limited from a respiratory standpoint. He did undergo a CT scan of the chest which we personally reviewed. It appears that he has extensive emphysema primarily in the upper lung zones but does manifest also in the bases. He does have a small subcentimeter pulmonary nodule. This will need follow-up in a year's time. During the visit we did go for brief walking oximetry in he did desaturate briefly down to 88%. The patient is Molina score was down to 2/10. This was not significant shortness of breath for him. at this point will try to provide bronchodilation and will perform pulmonary function studies to assess his lung capacity. We did talk about pulmonary rehabilitation and he can do on his own time specially if he wants doing online. At this point he quit smoking altogether. But he is concerned because is going through a some anger episodes. This is since he stop smoking. He was placed on an SSRI. He may need to have a higher dose. 04/25/2021 the patient is here for a pulmonary follow-up visit. He has now recovered from COVID-19. Feels like his breathing is worse. He is also having increasing productive cough with white thick sputum. He has been noticing increasing shortness of breath. Initially he was on Anoro but it was too expensive. I did give him a coupon for Trelegy inhaler with hopes that he could be more reasonable. But, his insurance did not cover it and could not use the coupon. Subsequently he came in for this appointment. We did review his pulmonary function studies demonstrating moderate COPD with severe diffusion impairment. I do believe that this is also affected by his recent COVID infection. Patient does have some increased wheezing and also crepitations at the bases. Therefore will treating for a COPD exacerbation and lower respiratory infections at this time. We did briefly go for walking oximetry. His oxygen decrease down briefly again to about 88-89%. The patient is reluctant to use oxygen at this time. He continues to work full-time. Sometimes he works doubles and is always on his feet. I encouraged the patient to listen to his body and avoid extraneous activity specially he starts desaturating is only going to resulting worsening his logic stressed the body including the heart in the brain. 06/06/2021 the patient is here for a pulmonary follow-up visit. He still complaining that his breathing is now worse specially after recovering from COVID-19. Unfortunately the patient had extensive emphysema even prior to the COVID. Now with COVID his respiratory status has worsened significantly. He did respond initially to the prednisone taper but then once he has completed his symptoms again reoccurred. He also tried multiple inhalers with that are actually very expensive for him and yet he did not see any significant improvement with respiratory status. 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 Point that he does qualify for oxygen. However, the patient is reluctant to do so based on the fact that he is young and he wants to continue working and he cannot work on oxygen. Will try him again on prednisone. Also provided with a nebulizer to see if we can get him more effective delivery of the medication. the patient is frustrated with his current health situation. I do emphasized with him and his wanting to be able to continue with his work ethic. 08/16/2021 the patient is here for a pulmonary follow-up visit. Since we last spoke the patient has been feeling about the same. Although, he is taking it easier to minimize his symptoms. He continues using nebulizer twice a day with partial response. Continues to have significant shortness of breath moderate severity. Denies any wheezing or any productive phlegm. He continues to have a a pulse ox in the low 90s. The patient has been reluctant to use oxygen. We will optimize his respiratory therapy by adding budesonide to his DuoNeb. In the meantime will also start the patient on Combivent in order for him to be able to continue the medicine even when he is outside of the home. If the Combivent is helpful he can consider taking that on vacation when he goes to [facility] ([facility]]. Otherwise any to take his nebulizer. His respiratory exam is better I do believe that he is making improvement. Were also follow-up pulmonary nodules. His next CT scan is going to be in December 2021. Will follow-up with him after that CT scan of the chest. 02/20/2022 the patient is here for a pulmonary follow-up visit. The patient has been doing relatively well. He had quit smoking for about a year. Unfortunately after going on vacation he once again restarted smoking. He is motivated to quitting. He does have the patch although he has not restarted using it. I did recommend starting Chantix. The patient understands that he has to monitor very closely for any depression or irritability. I am hopeful that he can start with a starter pack and then if he tolerates that then he can continue taking the maintenance dose. At any point he becomes uncomfortable taking his stop it and call me. We did review his CT scan of the chest that had back in December 2021. It is reassuring that his pulmonary nodules stable. We talked that may before his next CAT scan next year he can be part of the lung cancer screening program and therefore have low-dose CT scans. He continues uses nebulized therapy. He is very excited that his oxygenation is better today at 96% from before in the low 90s. The patient is encouraged that he could potentially get better. Therefore he is going to start the Chantix a monitor closely for any adverse effects. I am hopeful that he can tolerated. He will follow-up in 6 months. 08/21/2022 the patient is here for a pulmonary follow-up visit. The patient overall is doing well. Unfortunately he has gone back to smoking. Sometimes he smokes 5 cigarettes and sometimes he can not smoke up to a pack. Depends on his anxiety level. He is still working. And still using the Chantix with partial response. We did talk about adding a nicotine supplementation to see this is effective along with his Chantix. In addition to this we talked about hypnosis which will consider. The patient also be a great candidate for the lung cancer screening program. His next CT will be for the fall of 2022. Patient is using his respiratory therapy. Otherwise patient is without any other complaints. 01/22/2023 the patient is here for pulmonary follow-up visit. The patient continues to go back to smoking. Smoking about a pack a day. he would like to quit smoking before he leaves to a room by which is in 2 months. The patient did well with Chantix although he continued to smoke some. Therefore this time he can consider using Chantix along with the nicotine supplement a chin which could be the Nicotrol inhaler or the nicotine patch. He had a bad reaction to high-dose nicotine patch in the past. Therefore be reasonable for him to use lower patch along with the Chantix. If he has any adverse effects he can always stop it. The patient continues on the nebulized therapy with good effect. 06/25/2023 the patient is here for a pulmonary follow-up visit. The patient is doing about the same. Still having significant dyspnea on exertion. Moderate severity. 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 Unfortunately he does have severe emphysema. We did talk about the degree of severity I am concerned that his quickly getting worse. The patient continues to smoke cigarettes. He did try multiple smoking cessation therapies and did not tolerated. The last 1 was Chantix resulting in significant anxiety and insomnia. He is doing better after he stopped it. The patient is participating in the lung cancer screening program. His last CT scan again demonstrating extensive emphysema. Will plan to repeat his PFTs in 6 months. In the meantime the patient is complaining of chronic bronchitis and will start him on azithromycin 3 times a week. He is already on nebulized therapy which we responds well. He also has been on Combivent although he does not use it as regularly as he should. As far as further therapies in view of significant emphysema primarily in the upper lung zones we did talk about lung volume reduction interventions with the 1 way valves. Therefore, will have him undergo his PFTs and then we will look at all those options. 12/31/2023 the patient is here for a pulmonary follow-up visit. Overall he is doing okay. He was exposed to a recent sick contact but seems to be doing better. He did have some chest congestion. The patient also had pulmonary function studies. Appears that he has a moderate obstruction with significant response to bronchodilators. He is working on smoking cessation. He is going to look into hypnosis. If not we can also consider other alternatives. The patient is also plan to have a lung cancer screening CT scan sometime in January. He will continue with his nebulizer treatments as prescribed. He is tolerating them well. He did get his flu and COVID vaccine. He will get the Prevnar 20 today. We did go for a brief walking oximetry. His oxygen is better 92% although the heart rate is indeed elevated. 06/16/2024 the patient is here for pulmonary follow-up visit. Overall he is doing okay. He did go for the hypnosis for about 4 sessions. Unfortunately did not work for him. He continues smoking actually smoking about a pack a day still. The patient also continues nebulizer therapy with good effect. He still gets short of breath with activity. [id number] severity. Sometimes worse than others. The patient recently went to his primary care doctor was noted to be little bit more overweight and also had elevated blood sugars. He was had his in metformin increased. Since then he may dietary changes and he lost about 18 lb. He is going to follow-up with his primary care doctor soon. We did talk about the use of GLP 1 inhibitors that are helpful for diabetes but also can help with addiction such as smoking. Therefore she continues to have issues with elevated blood sugars or elevated hemoglobin A1c and needs potential therapy using the GLP 1 inhibitor will also help his smoking habit. I did give him information about this and will talk to his primary care doctor. [facility] Medical History (Updated 01/21/23 @ 11:07 by Faith Hannah PA-C) COPD (chronic obstructive pulmonary disease) Dyspnea Pulmonary nodule Personal history of nicotine dependence History of COVID-19 Hyperlipidemia Gout Social History (Updated 06/16/24 @ 13:57 by Mimi Maier CMA) Patient Tobacco Use Status: Current everyday Tobacco user Tobacco use type: Cigarette Cigarette Packs Per Day: 1 Cigarettes Per Day: 20 Years Smoked: 40 years Quit 10/2020 Review of Systems Const Denies night sweats ENT Denies change in voice, Denies lip swelling, Denies mouth pain, Reports nasal congestion, Reports nasal discharge and Denies tongue swelling Card Denies chest pain and Reports dyspnea on exertion Resp Denies chest congestion, Reports cough, Reports dyspnea on exertion and Reports wheezing GI Denies abdominal pain Musc Denies no additional complaints Neuro Denies Neuro-related abnormal movements Psych Denies no additional complaints Dragan/Lymph Denies easy bleeding and Denies lymphadenopathy Aller/Immun Denies lip swelling, Denies tongue swelling and Reports wheezing Physical Exam Vital Signs: Last Vital Signs Pulse 105 H 06/16/24 13:54 BP 118/70 06/16/24 13:54 Pulse Ox 91 L 06/16/24 13:54 Oxygen Delivery Method Room Air 06/16/24 13:54 BMI result Body Mass Index 25.4 Const General: alert Neck Neck: Yes normal visual inspection, Yes full ROM and Yes no lymphadenopathy Chest Chest palpation & inspection: normal inspection of the chest Resp Effort & Inspection: normal respiratory effort Auscultation: no rhonchi, no wheezes and diminished lung sounds Cardio Rate: regular rate Rhythm: regular rhythm Heart sounds: S1 normal heart sound present and S2 normal heart sound present GI Palpation (GI): Soft to palpation and nontender Auscultation: normal bowel sounds Skin General skin exam: rashes and/or lesions noted Assessment & Plan Assessment & Plan (1) Pulmonary nodule: Comment: Stable 4 mm pulmonary nodule based on last CT scan December 2021 Code(s): R91.1 - Solitary pulmonary nodule Category: Medical (2) COPD (chronic obstructive pulmonary disease): Code(s): J44.9 - Chronic obstructive pulmonary disease, unspecified Category: Medical Qualifiers: COPD type: COPD with acute exacerbation Qualified Code(s): J44.1 - Chronic obstructive pulmonary disease with (acute) exacerbation (3) Dyspnea: Code(s): R06.00 - Dyspnea, unspecified Category: Medical Qualifiers: Dyspnea type: dyspnea on exertion Qualified Code(s): R06.00 - Dyspnea, unspecified (4) Personal history of nicotine dependence: Comment: (former smoker quit 10/2020) Prior chest CTs done. 12/28/2020 was lung-RADS 2, 12/19/21 noted stable 4mm RUL nodule. Code(s): Z87.891 - Personal history of nicotine dependence Category: Medical Plan Continue nebulized therapy with DuoNeb twice a day budesonide via nebulizer CPT with [place] valve Combivent LDCT consider GLP 1 inhibitor for diabetes and also know to help with addictive behaviors start Chantix start nicotine patch F/U 6 months Medications: Changed From ipratropium-albuterol 0.5 mg-3 mg(2.5 mg base)/3 mL 3 mL inhalation BID 180 mL 3RF J44.9 - Chronic obstructive pulmonary disease, unspecified To ipratropium-albuterol 0.5 mg-3 mg(2.5 mg base)/3 mL 3 mL inhalation BID 540 mL 3RF 90 days J44.9 - Chronic obstructive pulmonary disease, unspecified Coding Level of Care Code Est Pt Level 4 (92475) Complex EM visit Add On G2211 Diagnoses Pulmonary nodule R91.1 Chronic obstructive pulmonary disease with acute exacerbation J44.1 COPD type: COPD with acute exacerbation Dyspnea on exertion R06.00 Dyspnea type: dyspnea on exertion Personal history of nicotine dependence Z87.891 Time Spent (min) 17
== END 2024-06-16 14:18 | disposition home or self-care (01) ==
LOC: HO.HPS 13:52
PROVIDERS: PCP Internal Medicine; Visit Provider Hospitalist
DX: R91.1 Solitary pulmonary nodule (principal); J44.1 Chronic obstructive pulmonary disease with (acute) exacerbation; R06.00 Dyspnea, unspecified; Z87.891 Personal history of nicotine dependence
CPT/HCPCS: 99214

== ENCOUNTER 2024-12-22 13:48 | Outpatient (AMB) | payer BC, SELFPAY ==
[2024-12-22 13:49] VITALS: BP 118/68; PULSE 104; O2SAT 93; BMI 24.1
--- NOTE | 2024-12-22 13:49 | A.OFFVIS_ITS ---
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 He quit 4 months ago. He continues to have dyspnea on exertion. Moderate severity. Does get better with rest. He is very busy at work. 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 His job is very active. He does not feel limited from a respiratory standpoint. He did undergo a CT scan of the chest which we per sonally reviewed. It appears that he has extensive emphysema primarily in the upper lung zones but does manifest also in the bases. He does have a small subcentimeter pulmonary nodule. This will need follow-up in a year's time. During the visit we did go for brief walking oximetry in he did desaturate briefly down to 88%. The patient is Molina score was down to 2/10. This was not significant shortness of breath for him. at this point will try to provide bronchodilation and will perform pulmonary function studies to assess his lung capacity. We did talk about pulmonary rehabilitation and he can do on his own time specially if he wants doing online. At this point he quit smoking altogether. But he is concerned because is going through a some anger episodes. This is since he stop smoking. He was placed on an SSRI. He may need to have a higher dose. 04/25/2021 the patient is here for a pulmonary follow-up visit. He has now recovered from COVID-19. Feels like his breathing is worse. He is also having increasing productive cough with white thick sputum. He has been noticing increasing shortness of breath. Initially he was on Anoro but it was too expensive. I did give him a coupon for Trelegy inhaler with hopes that he could be more reasonable. But, his insurance did not cover it and could not use the coupon. Subsequently he came in for this appointment. We did review his pulmonary function studies demonstrating moderate COPD with severe diffusion impairment. I do believe that this is also affected by his recent COVID infection. Patient does have some increased wheezing and also crepitations at the bases. Therefore will treating for a COPD exacerbation and lower respiratory infections at this time. We did briefly go for walking oximetry. His oxygen decrease down briefly again to about 88-89%. The patient is reluctant to use oxygen at this time. He continues to work full-time. Sometimes he works doubles and is always on his feet. I encouraged the patient to listen to his body and avoid extraneous activity specially he starts desaturating is only going to resulting worsening his logic stressed the body including the heart in the brain. 06/06/2021 the patient is here for a pulmonary follow-up visit. He still complaining that his breathing is now worse specially after recovering from COVID-19. Unfortunately the patient had extensive emphysema even prior to the COVID. Now with COVID his respiratory status has worsened significantly. He did respond initially to the prednisone taper but then once he has completed his symptoms again reoccurred. He also tried multiple inhalers with that are actually very expensive for him and yet he did not see any significant improvement with respiratory status. 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 Point that he does qualify for oxygen. However, the patient is reluctant to do so based on the fact that he is young and he wants to continue working and he cannot work on oxygen. Will try him again on prednisone. Also provided with a nebulizer to see if we can get him more effective delivery of the medication. the patient is frustrated with his current health situation. I do emphasized with him and his wanting to be able to continue with his work ethic. 08/16/2021 the patient is here for a pulmonary follow-up visit. Since we last spoke the patient has been feeling about the same. Although, he is taking it easier to minimize his symptoms. He continues using nebulizer twice a day with partial response. Continues to have significant shortness of breath moderate severity. Denies any wheezing or any productive phlegm. He continues to have a a pulse ox in the low 90s. The patient has been reluctant to use oxygen. We will optimize his respiratory therapy by adding budesonide to his DuoNeb. In the meantime will also start the patient on Combivent in order for him to be able to continue the medicine even when he is outside of the home. If the Combivent is helpful he can consider taking that on vacation when he goes to [place]. Otherwise any to take his nebulizer. His respiratory exam is better I do believe that he is making improvement. Were also follow-up pulmonary nodules. His next CT scan is going to be in December 2021. Will follow-up with him after that CT scan of the chest. 02/20/2022 the patient is here for a pulmonary follow-up visit. The patient has been doing relatively well. He had quit smoking for about a year. Unfortunately after going on vacation he once again restarted smoking. He is motivated to quitting. He does have the patch although he has not restarted using it. I did recommend starting Chantix. The patient understands that he mujica s to monitor very closely for any depression or irritability. I am hopeful that he can start with a starter pack and then if he tolerates that then he can continue taking the maintenance dose. At any point he becomes uncomfortable taking his stop it and call me. We did review his CT scan of the chest that had back in December 2021. It is reassuring that his pulmonary nodules stable. We talked that may before his next CAT scan next year he can be part of the lung cancer screening program and therefore have low-dose CT scans. He continues uses nebulized therapy. He is very excited that his oxygenation is better today at 96% from before in the low 90s. The patient is encouraged that he could potentially get better. Therefore he is going to start the Chantix a monitor closely for any adverse effects. I am hopeful that he can tolerated. He will follow-up in 6 months. 08/21/2022 the patient is here for a pulmonary follow-up visit. The patient overall is doing well. Unfortunately he has gone back to smoking. Sometimes he smokes 5 cigarettes and sometimes he can not smoke up to a pack. Depends on his anxiety level. He is still working. And still using the Chantix with partial response. We did talk about adding a nicotine supplementation to see this is effective along with his Chantix. In addition to this we talked about hypnosis which will consider. The patient also be a great candidate for the lung cancer screening program. His next CT will be for the fall of 2022. Patient is using his respiratory therapy. Otherwise patient is without any other complaints. 01/22/2023 the patient is here for pulmonary follow-up visit. The patient continues to go back to smoking. Smoking about a pack a day. he would like to quit smoking before he leaves to a room by which is in 2 months. The patient did well with Chantix although he continued to smoke some. Therefore this time he can consider using Chantix along with the nicotine supplement a chin which could be the Nicotrol inhaler or the nicotine patch. He had a bad reaction to high-dose nicotine patch in the past. Therefore be reasonable for him to use lower patch along with the Chantix. If he has any adverse effects he can always stop it. The patient continues on the nebulized therapy with good effect. 06/25/2023 the patient is here for a pulmonary follow-up visit. The patient is doing about the same. Still having significant dyspnea on exertion. Moderate severity. 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 Unfortunately he does have severe emphysema. We did talk about the degree of severity I am concerned that his quickly getting worse. The patient continues to smoke cigarettes. He did try multiple smoking cessation therapies and did not tolerated. The last 1 was Chantix resulting in significant anxiety and insomnia. He is doing better after he stopped it. The patient is participating in the lung cancer screening program. His last CT scan again demonstrating extensive emphysema. Will plan to repeat his PFTs in 6 months. In the meantime the patient is complaining of chronic bronchitis and will start him on azithromycin 3 times a week. He is already on nebulized therapy which we responds well. He also has been on Combivent although he does not use it as regularly as he should. As far as further therapies in view of significant emphysema primarily in the upper lung zones we did talk about lung volume reduction interventions with the 1 way valves. Therefore, will have him undergo his PFTs and then we will look at all those options. 12/31/2023 the patient is here for a pulmonary follow-up visit. Overall he is doing okay. He was exposed to a recent sick contact but seems to be doing better. He did have some chest congestion. The patient also had pulmonary function studies. Appears that he has a moderate obstruction with significant response to bronchodilators. He is working on smoking cessation. He is going to look into hypnosis. If not we can also consider other alternatives. The patient is also plan to have a lung cancer screening CT scan sometime in January. He will continue with his nebulizer treatments as prescribed. He is tolerating them well. He did get his flu and COVID vaccine. He will get the Prevnar 20 today. We did go for a brief walking oximetry. His oxygen is better 92% although the heart rate is indeed elevated. 06/16/2024 the patient is here for pulmonary follow-up visit. Overall he is doing okay. He did go for the hypnosis for about 4 sessions. Unfortunately did not work for him. He continues smoking actually smoking about a pack a day still. The patient also continues nebulizer therapy with good effect. He still gets short of breath with activity. Arfg-[id number]-[id number] severity. Sometimes worse than others. The patient recently went to his primary care doctor was noted to be little bit more overweight and also had elevated blood sugars. He was had his in metformin increased. Since then he may dietary changes and he lost about 18 lb. He is going to follow-up with his primary care doctor soon. We did talk about the use of GLP 1 inhibitors that are helpful for diabetes but also can help with addiction such as smoking. Therefore she continues to have issues with elevated blood sugars or elevated hemoglobin A1c and needs potential therapy using the GLP 1 inhibitor will also help his smoking habit. I did give him information about this and will talk to his primary care doctor. 12/22/2024 the patient is here for pulmonary follow-up visit. Overall he is doing okay. Still having dyspnea on exertion specially at work. Sometimes he forgets uses Combivent. The patient does use the nebulizer twice a day with DuoNeb and also budesonide with good effect. Sometimes he does expectorate some colored phlegm. Plau-ay-rqfxrlqf severity. Unfortunately he has continues to smoke cigarettes. He is not ready to quit. He did try multiple different modalities to quit and has not been able to be successful. He is going to go ahead and try other alternatives at this time. The patient is scheduled to have his lung cancer screening CAT scan sometime at the end of the year. In the meantime we are going to go ahead and switch his company to [employer] in order to get a longer acting affect. The patient can use the Symbicort especially before going to work. He is still can continue the at least the budesonide via the nebulizer with the DuoNeb at least once a day and then the DuoNeb by itself when he gets back from work. We did talk about the importance of rinsing his mouth after taking the budesonide medication. The patient will be getting a flu shot and a COVID shot soon. He is doing much better from a weight status. Overall he is doing well. Will follow-up in 6 months. [facility] Medical History (Updated 12/08/24 @ 09:04 by Faith Hannah PA-C) COPD (chronic obstructive pulmonary disease) Dyspnea Pulmonary nodule Personal history of nicotine dependence History of COVID-19 Hyperlipidemia Gout Social History Patient Tobacco Use Status: Current everyday Tobacco user Tobacco use type: Cigarette Cigarette Packs Per Day: 1 Cigarettes Per Day: 20 Years Smoked: 40 years Quit 10/2020 Review of Systems Const Denies night sweats ENT Denies change in voice, Denies lip swelling, Denies mouth pain, Reports nasal congestion, Reports nasal discharge and Denies tongue swelling Card Denies chest pain and Reports dyspnea on exertion Resp Denies chest congestion, Reports cough, Reports dyspnea on exertion and Reports wheezing GI Denies abdominal pain Musc Denies no additional complaints Neuro Denies Neuro-related abnormal movements Psych Denies no additional complaints Dragan/Lymph Denies easy bleeding and Denies lymphadenopathy Aller/Immun Denies lip swelling, Denies tongue swelling and Reports wheezing Physical Exam Vital Signs: Last Vital Signs Pulse 104 H 12/22/24 13:49 BP 118/68 12/22/24 13:49 Pulse Ox 93 12/22/24 13:49 Oxygen Delivery Method Room Air 12/22/24 13:49 BMI result Body Mass Index 24.1 Const General: alert Neck Neck: Yes normal visual inspection, Yes full ROM and Yes no lymphadenopathy Chest Chest palpation & inspection: normal inspection of the chest Resp Effort & Inspection: normal respiratory effort Auscultation: no rhonchi, no wheezes and diminished lung sounds Cardio Rate: regular rate Rhythm: regular rhythm Heart sounds: S1 normal heart sound present and S2 normal heart sound present GI Palpation (GI): Soft to palpation and nontender Auscultation: normal bowel sounds Skin General skin exam: rashes and/or lesions noted Assessment & Plan Assessment & Plan (1) Pulmonary nodule: Comment: Stable 4 mm pulmonary nodule based on last CT scan December 2021 Code(s): R91.1 - Solitary pulmonary nodule Category: Medical (2) COPD (chronic obstructive pulmonary disease): Code(s): J44.9 - Chronic obstructive pulmonary disease, unspecified Category: Medical Qualifiers: COPD type: COPD with acute exacerbation Qualified Code(s): J44.1 - Chronic obstructive pulmonary disease with (acute) exacerbation (3) Dyspnea: Code(s): R06.00 - Dyspnea, unspecified Category: Medical Qualifiers: Dyspnea type: dyspnea on exertion Qualified Code(s): R06.00 - Dyspnea, unspecified (4) Personal history of nicotine dependence: Comment: (former smoker - 30+PYH, quit 10/2020) Code(s): Z87.891 - Personal history of nicotine dependence Category: Medical Plan Continue nebulized therapy with DuoNeb twice a day budesonide via nebulizer CPT with acapella valve stop Combivent start Symbicort LDCT Tobacco cessation F/U 6 months Medications: New budesonide-formoterol 160-4.5 mcg/actuation (Symbicort) 2 puffs inhalation BID 10.2 grams 11RF 30 days J44.89 - Other specified chronic obstructive pulmonary disease Coding Level of Care Code Est Pt Level 4 (59996) Complex EM visit Add On G2211 Diagnoses Pulmonary nodule R91.1 Chronic obstructive pulmonary disease with acute exacerbation J44.1 COPD type: COPD with acute exacerbation Dyspnea on exertion R06.00 Dyspnea type: dyspnea on exertion Personal history of nicotine dependence Z87.891 Time Spent (min) 16
--- OUTSIDE RECORDS SUMMARY | 2024-12-22 17:01 | XMS_ITS | Clinical Summary ---
Author Organization [facility] Address [address] [address] Phone Care Team Providers Care Teacher Counselor Name Role Phone Ganga Zamarripa MD Primary Care Provider [phone] Medications atorvastatin (LIPITOR) 10 MG tablet Take 1 tablet by mouth every morning. 4 Active budesonide (PULMICORT) 0.5 mg/2 mL nebulizer solution Take 0.5 mg by nebulization 2 (two) times a day. 3 Active ipratropium-alb uteroL (DUONEB) 0.5-3 mg (2.5 mg base)/3 mL nebulizer solution Take 3 mL by nebulization 2 (two) times a day. 4 Active metFORMIN (GLUCOPHAGE) 500 MG tablet Take 1 tablet by mouth 2 (two) times a day. 4 Active Social History Tobacco Use Types Packs/Day Years Used Date Smoking Tobacco: Never Assessed Education Answer Date Recorded Are you interested in more education? Not on rolf e 04/11/2023 Are you concerned about learning? Not on file 04/11/2023 No 04/11/2023 No 04/11/2023 Digital Access Answer Date Recorded No 04/11/2023 No 04/11/2023 Reliable internet access at home? Not on file 04/11/2023 Device with a working camera? Not on file Sex and Gender Information Value Date Recorded Sex Assigned at Not on file Legal Sex Male 3:47 PM EST Gender Identity Not on file Sexual Orientation Not on file Plan of Treatment Health Maintenance Due Date Last Done Comments Adult Td,Tdap Booster 1965 CREATININE LEVEL 1965 LIPID PANEL 1965 DEPRESSION SCREENING 1977 SMOKING Hx and SMOKELESS TOB ACCO SCREENING 1978 HEPATITIS C SCREENING 12/06/1983 HIV ONE-TIME SCREENING (18-6 5 YEARS) 12/06/1983 COLOGUARD 2010 COLONOSCOPY 2010 COLORECTAL CANCER SCREENING 2010 FIT TEST 2010 FOBT 2010 SIGMOIDOSCOPY 2010 VIRTUAL COLONOSCOPY 2010 PNEUMOCOCCAL VACCINES (50+ y ears) (1 of 1 - PCV) 12/06/2015 ZOSTER VACCINES (1 of 2) 12/06/2015 INFLUENZA VACCINE (#1) 2024 COVID-19 VACCINE (1 - 2024-2 6 season) 2024 RSV VACCINE (1 - 1-dose 75+ series) 2040 HEPATITIS A VACCINES Aged Out No long er eligible based on patient's age to complete this topic HIB VACCINES Aged Out No longer eligi ble based on patient's age to complete this topic MENINGOCOCCAL VACCINES (ACWY) Aged Out No longer eligible based on patient's age to complete this topic MENINGOCOCCAL VACCINES (B) Aged Out N o longer eligible based on patient's age to complete this topic Medical Devices Not on file Insurance [facility] Care Teams Teacher Counselor Relationship Specialty Start Date End Date Ganga Zamarripa MD [address] [place] [address] PCP - General Internal Medicine 04/10/23 Additional Source Comments The information contained in this document represents components of the legal health record. It is not the complete legal health record.[facility]
== END 2024-12-22 14:17 | disposition home or self-care (01) ==
LOC: HO.HPS 13:49
PROVIDERS: PCP Internal Medicine; Visit Provider Hospitalist
DX: R91.1 Solitary pulmonary nodule (principal); J44.1 Chronic obstructive pulmonary disease with (acute) exacerbation; R06.00 Dyspnea, unspecified; Z87.891 Personal history of nicotine dependence
CPT/HCPCS: 99214

== ENCOUNTER 2025-02-09 16:15 | Outpatient (REF) | payer BC, SELFPAY ==
--- NOTE | ~2025-02-09 | CT_ITS ---
EXAMINATION: CT LOW-DOSE SCREENING CHEST WITHOUT CONTRAST CLINICAL INFORMATION: Z87.891 - Personal history of nicotine dependence COMPARISON: January 28, 2024 TECHNIQUE: Multidetector volumetric CT imaging of the chest is performed on a Siemens SOMATOM Definition scanner without contrast using low dose technique. Additional 2D coronal and sagittal reformatted images and axial 3D maximum intensity projection (MIP) images are generated on the CT workstation. This CT examination was performed using dose optimization techniques as appropriate, variously including the following: *Automated exposure control *Adjustment of mA and/or kV according to patient size (this includes techniques or standardized protocols for targeted exams where dose is matched to indication/reason for exam; i.e. extremities or head) *Use of iterative reconstruction technique Due to technical problems, the thin slices and axial MIP sequences are not available for review. CTDIvol: 1.47 mGy. FINDINGS: PULMONARY NODULES: No suspicious pulmonary nodules. LUNGS: Minimal soft tissue density within the trachea and right main bronchus most likely represents secretions/mucous. Mild diffuse bronchial wall thickening. Marked upper lobe predominant emphysema and bibasilar scarring are similar to 2023. No confluent consolidation. Unchanged focal band of scarring/atelectasis in the right middle lobe. Some of the previously described pulmonary nodules, including the one described as new in the right upper lobe are not well seen on today's thicker slices images. Unchanged 0.2 cm pulmonary nodule in the left lung base (5:134/157). No new pulmonary nodules identified. MEDIASTINUM: No thyroid nodules. Heart is normal in size. No pericardial effusion. Scattered calcifications along the thoracic aorta and great vessels. No bulky lymphadenopathy. CORONARY ARTERY CALCIFICATION: Severe amount of calcifications. CHEST WALL/AXILLA: No concerning findings. UPPER ABDOMEN: Stomach is physiologically distended with ingested content. OSSEOUS STRUCTURES: No suspicious focal findings. CT/CT lung screening IMPRESSION: Unchanged marked emphysema. No new or enlarging pulmonary nodules identified. ASSESSMENT: 1. Lung-RADS Category 2: Benign appearance or behavior of nodules. 2. Lung-RADS Category S: Negative. There are no clinically significant or potentially clinically significant findings not related to the lungs requiring urgent additional evaluation. RECOMMENDATION: Continued routine annual low-dose CT lung screening in 1 year is recommended. An order for CT CHEST LOW DOSE CANCER SCREENING ([id number]) can be placed. Electronically signed by: Eric Sneed MD 02/10/2025 07:40 AM EST
--- OUTSIDE RECORDS SUMMARY | 2025-02-09 19:28 | XMS_ITS | Clinical Summary ---
Author Organization [facility] Address [address] [address] Phone Care Team Providers Care Piece Hand Name Role Phone Ganga Zamarripa MD Primary Care Provider Medications atorvastatin (LIPITOR) 10 MG tablet Take [...] topic Medical Devices Not on file Insurance [facility] Care Teams Piece Hand Relationship Specialty Start Date End Date Ganga Zamarripa MD [address] [place] [address] PCP - General Internal Medicine 04/10/23 Additional Source Comments The information contained in this document represents components of the legal health record. It is not the complete legal health record.[facility]
== END 2025-02-09 16:16 | disposition home or self-care (01) ==
LOC: HO.CT 16:15
PROVIDERS: PCP Internal Medicine; Visit Provider Physician Assistant Medical
DX: Z87.891 Personal history of nicotine dependence (principal)
CPT/HCPCS: 71271

== ENCOUNTER → 2025-02-09 16:17 | Outpatient (BNV) | payer BC, SELFPAY | PROVIDERS: PCP Internal Medicine; Visit Provider Radiology Body Imaging | DX: Z87.891 Personal history of nicotine dependence (principal) | CPT/HCPCS: 71271 ==